=== PATIENT | male | born 1970 | race Caucasian/White ===

== ENCOUNTER 2019-05-07 11:39 | Emergency (ER) | payer OTHER ==
[~2019-05-07] VITALS: Ht 165.1 cm; Wt 82.6 kg
[2019-05-07] MEDS ORDERED: CRESTOR10 MG (12:08)
[2019-05-07] MEDS ORDERED: COZAAR100 MG (12:08)
[2019-05-07] MEDS ORDERED: ASPIRIN81 M1 (12:09)
[2019-05-07] MEDS ORDERED: TRICOR145 MG (12:09)
[2019-05-07] MEDS ORDERED: DICLOFENAC SODI50 MG PO (15:47)
== END 2019-05-07 16:23 | disposition home or self-care (01) ==
LOC: ER 11:39
DX: S60.051A Contusion of right little finger without damage to nail, initial encounter (principal); S60.221A Contusion of right hand, initial encounter; W22.8XXA Striking against or struck by other objects, initial encounter; Y93.89 Activity, other specified; Y92.098 Other place in other non-institutional residence as the place of occurrence of the external cause; Y99.8 Other external cause status

== ENCOUNTER 2021-07-26 14:53 | Emergency (ER) | payer OTHER ==
[~2021-07-26] VITALS: Ht 165.1 cm; Wt 86.2 kg
[~2021-07-26 14:53] MED LIST: ASPIRIN81 M1; COZAAR100 MG; CRESTOR10 MG; DICLOFENAC SODI50 MG PO; TRICOR145 MG
[2021-07-26] MEDS ORDERED: AMLODIPINE-OLM1 EAC2 PO (15:03)
== END 2021-07-26 19:35 | disposition home or self-care (01) ==
LOC: ER 14:53
DX: R42 Dizziness and giddiness (principal)

== ENCOUNTER 2022-04-18 13:24 | Emergency (ER) | payer OTHER ==
[~2022-04-18] VITALS: Ht 165.1 cm; Wt 86.2 kg
[~2022-04-18 13:24] MED LIST changes: +AMLODIPINE-OLM1 EAC2 PO
[2022-04-18] MEDS ORDERED: PLAVIX75 MG PO (13:55)
== END 2022-04-18 18:07 | disposition home or self-care (01) ==
LOC: ER 13:24
DX: I10 Essential (primary) hypertension (principal)